=== PATIENT | female | born 1990 | race Caucasian/White ===

== ENCOUNTER 2016-08-13 17:11 | Emergency (ER) | payer SELFPAY ==
[~2016-08-13] VITALS: Ht 170.2 cm; Wt 61.2 kg
--- NOTE | 2016-08-13 17:18 | NUR ---
PRESENTS SELF TO ED-- SENT BY PMD TO RO APPENDICITIS. PATIENT IS COMPLAINING OF RLQ PAIN X 4 DAYS, 12/27, NON RADIATING. DENIES NAUSEA AND VOMITTING. PATIENT IS AAO4, APPEARS IN NO APPARENT DISTRESS, RESPIRATION EVEN AND UNLABORED. SKIN IS WARM TO TOUCH AND NON DIAPHORETIC. PATIENT IS AFEBRILE.
--- NOTE | 2016-08-13 17:30 | NUR ---
PT IS BACK FROM CT
[2016-08-13] MEDS ORDERED: MORPHINE SULFATE INJ 4 MG/ML DISP.SYRIN ONE (17:32)
[2016-08-13] MEDS ORDERED: ONDANSETRON HCL/PF 4 MG/2 ML VIAL ONE (17:32)
--- NOTE | 2016-08-13 17:32 | NUR ---
PT WAS TAKEN TO CT
[2016-08-13 17:33] LABS: BASOPHILS # (AUTO) 0.1 /CMM (0.0-0.2); BASOPHILS % (AUTO) 0.6 % (0.0-2.0); EOSINOPHILS # (AUTO) 0.2 /CMM (0.0-0.7); EOSINOPHILS % (AUTO) 1.8 % (0.0-6.0); HEMATOCRIT 43 % (33-45); HEMOGLOBIN 14.2 g/dL (11.5-14.8); LYMPHOCYTES # (AUTO) 2.2 /CMM (0.8-4.8); LYMPHOCYTES % (AUTO) 23.8 % (20.0-44.0); MEAN CORPUSCULAR HEMOGLOBIN 29 PG (26.0-33.0); MEAN CORPUSCULAR HGB CONC 33 g/dl (31.0-36.0); MEAN CORPUSCULAR VOLUME 88 fL (82-100); MONOCYTES # (AUTO) 0.6 /CMM (0.1-1.30); MONOCYTES % (AUTO) 6.7 % (2.0-12.0); NEUTROPHILS % (AUTO) 67.1 % (43.0-81.0); PLATELET COUNT (AUTO) 371 /CMM (150-450); RDW COEFFICIENT OF VARIATION 12.3 (11.5-15.0); RED BLOOD CELL COUNT(AUTO) 4.85 MIL/uL (4.0-5.2); WHITE BLOOD COUNT (AUTO) 9.1 K/uL (4.3-11.0)
[2016-08-13 17:35] LABS: APPEARANCE,URINE Slightly Cloudy (CLEAR); BLOOD, URINE Trace-intact Ery/uL (NEGATIVE); COLOR,URINE Yellow (YELLOW); KETONES,URINE >=160 (NEGATIVE); LEUKOCYTE ESTERASE ,URINE Negative (NEGATIVE); NITRITE, URINE Negative (NEGATIVE); PH,URINE 6.5 (5.0-8.0); PROTEIN,URINE 30 mg/dl (NEGATIVE); UGLUCOSE Negative (NEGATIVE); UROBILINOGEN,URINE 0.2 EU/dL (0.2)
[2016-08-13 17:36] LABS: BILIRUBIN,URINE SMALL (NEGATIVE); PREGNANCY TEST URINE QUAL NEGATIVE (NEGATIVE)
[2016-08-13] MEDS: MORPHINE SULFATE INJ 2 MG/ML DISP.SYRIN IV ONE (17:43)
[2016-08-13 17:44] LABS: CALCIUM, SERUM 9.5 mg/dL (8.5-10.1); CREATININE 0.9 mg/dL (0.6-1.3); POTASSIUM 3.3 mmol/L (3.5-5.1)
[2016-08-13] MEDS: ONDANSETRON HCL/PF 4 MG/2 ML VIAL IVP ONE (17:44)
[2016-08-13 17:51] LABS: ALBUMIN 4.5 g/dL (3.4-5.0); BILIRUBIN,DIRECT 0.1 mg/dL (0.0-0.2); BILIRUBIN,TOTAL 0.4 mg/dL (0.2-1.0); TOTAL PROTEIN, SERUM 8.8 g/dL (6.4-8.2)
[2016-08-13 18:08] LABS: ADD URINE CULTURE NO; BACTERIA,URINE Few /HPF (None Seen); SQUAMOUS EPITHELIAL CELL,UR Moderate /HPF (None Seen); WBC,URINE 0-2 /HPF (0-3)
[2016-08-13] MEDS ORDERED: METOCLOPRAMIDE HCL 10 MG/2 ML VIAL ONE (18:45)
[2016-08-13] MEDS ORDERED: diphenhydrAMINE HCL 50 MG/ML VIAL ONE (18:46)
[2016-08-13] MEDS ORDERED: IV SET PRIMARY 1 EA INFUS.SET MC ONE (18:46)
[2016-08-13] MEDS ORDERED: IV NS 0.9% 50 ML IV ONE (18:46)
[2016-08-13] MEDS: diphenhydrAMINE HCL 50 MG/ML VIAL IV ONE (18:53)
[2016-08-13] MEDS: METOCLOPRAMIDE HCL 10 MG/2 ML VIAL IV ONE (18:56)
--- NOTE | 2016-08-13 19:33 | NUR ---
IV removed. Catheter intact and site benign. Pressure and 4x4 applied to site. No bleeding noted. DPatient discharged to home in stable condition. Written and verbal after care instructions given. Patient verbalizes understanding of instruction. Patient is ambulatory with steady gait, accompanied by friend. No further complaints.
[2016-08-13 19:38] VITALS: BP 119/64
== END 2016-08-13 19:38 | disposition home or self-care (01) ==
LOC: ER 17:17
DX: R10.31 Right lower quadrant pain (principal); R11.2 Nausea with vomiting, unspecified; R19.7 Diarrhea, unspecified; F17.200 Nicotine dependence, unspecified, uncomplicated
CPT/HCPCS: 36415; 74176; 80048; 80076; 81001; 83690; 84703; 85025; 96374; 96375; 99285; A4216; A4606; J1200; J2270; J2405; J2765; Z7610; 81000-TC